=== PATIENT | male | born 1995 | race Caucasian/White ===

== ENCOUNTER 2019-10-20 18:22 | Emergency (ER) | payer OTHER, SELFPAY ==
[2019-10-20 18:23] VITALS: BP 119/85; PULSE 61; RESP 18; TEMP 36.3; O2SAT 99; BMI 25.8
--- NOTE | 2019-10-20 18:38 | ED_ITS ---
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 He did not his head and there is no loss of consciousness. Due to pain he was unable to get up for brief period of time but then was able to get up, with significant difficulty in walking slightly lightheaded but tolerated sitting in the car while his brought him into the emergency department. He complains of severe pain at the top of lumbar curve and severe pain with any movement of his left leg. He describes some minor tingling in all toes (bilateral) but no overt numbness. He is able to move both lower extremities and he is neurovascularly intact Related Data Previous Rx's Medication Instructions Recorded oxycodone-acetaminophen 1 tab PO Q6H PRN #20 tab 10/20/19 Allergies Allergy/AdvReac Type Severity Reaction Status Date / Time No Known Drug Allergies Allergy Verified 10/20/19 18:23 Review of Systems Review of Systems Narrative: Pertinent positive and negative findings as per HPI Remainder of review of systems is otherwise unremarkable for Constitutional: Fevers, chills, weakness ENT: No sore throat, neck pain, ear pain CV: Chest pain, palpitations, dyspnea on exertion Respiratory: Cough, wheeze, dyspnea GI: Nausea, vomiting, diarrhea, change in bowel habits, black or bloody stools : Dysuria, hematuria, flank pain MS: Muscle weakness, numbness, joint swelling or warmth Skin: Rashes, nonhealing lesions Neuro: Syncope, dizziness, tingling Patient History Social History Smoking Status: Current every day smoker Smoking Status: Current every day smoker tobacco type: cigarettes alcohol intake frequency: a few times a week Substance Use Type: does not use Exam Narrative Exam Narrative: General: Healthy appearing, in significant pain without respiratory distress. Able to give a complete and coherent history. Well- nourished well-developed HEENT: Moist mucous membranes, normal sclera with reactive pupils, no trauma to the head or face Neck: No tenderness to the occipital insertion, midline cervical spine, supple Respiratory: Lungs are clear to auscultation, no wheezing no rales no rhonchi. Full and symmetrical air movement Chest: No subcutaneous air, significant bruising or contusion, Cardiac: Regular rate and rhythm no murmurs no bruits Abdomen: Soft mild tenderness in the right lower quadrant, good bowel tones, mild right flank pain Skin: Warm and dry, no rashes, abrasions or other trauma Neurologic: Grossly neurologically intact with no obvious asymmetries or abnormalities. He describes tingling to the tips of all 10 toes but has full sensation and is able to move them with good capillary refill to all toes. Exquisite pain in his back with any manipulation of the left leg, unable to lift more than 5? without causing pain. Right leg does exacerbate the back pain slightly but he is able to flex and rotate that hip. He does not have any pain or tenderness with manipulation of the SI joint or pelvic ring. Spine: No tenderness to palpation in the thoracic or lumbar spine no abrasions or contusions to the back. Extremities: No trauma, well perfused Psych: Cooperative, appropriate insight and affect Initial Vital Signs Initial Vital Signs: Vital Signs Temperature 97.4 F L 10/20/19 18:23 Pulse Rate 61 10/20/19 18:23 Respiratory Rate 18 10/20/19 18:23 Blood Pressure 119/85 10/20/19 18:23 Pulse Oximetry 99 10/20/19 18:23 Course Orders Ordered: ED Orders 10/20/19 18:51 CT abdomen pelvis w con Stat 10/20/19 18:52 XR chest 1V Stat 10/20/19 19:03 Complete Blood Count AUTO DIFF Stat Comprehensive Metabolic Panel Stat Lipase Stat 10/20/19 20:25 CT chest w con Stat Hydromorphone HCl (Dilaudid) 0.5 mg IV Q30MIN PRN PRN Reason: pain Ondansetron HCl (Zofran) 4 mg IV PRN PRN PRN Reason: Nausea Last Admin: 10/20/19 19:36 Dose: 4 mg Documented by: CVANCE Discontinued Medications Hydromorphone HCl (Dilaudid) 1 mg IV NOW ONE Stop: 10/20/19 18:51 Last Admin: 10/20/19 19:35 Dose: 1 mg Documented by: CVANCE Sodium Chloride (Normal Saline 0.9%) 1,000 mls @ 1,000 mls/hr IV BOLUS ONE Stop: 10/20/19 19:49 Last Infusion: 10/20/19 20:35 Dose: 0 mls/hr Documented by: Admin: 10/20/19 19:35 Dose: 1,000 mls/hr Documented by: CHRIS Ketorolac Tromethamine (Toradol) 15 mg IV NOW ONE Stop: 10/20/19 21:12 Last Admin: 10/20/19 21:31 Dose: 15 mg Documented by: CHRIS Ondansetron HCl (Zofran) 4 mg IV NOW ONE Stop: 10/20/19 20:26 Last Admin: 10/20/19 20:45 Dose: Not Given Documented by: CHRIS Oxycodone/Acetaminophen (Percocet 5/325) 1 tab PO NOW ONE Stop: 10/20/19 21:12 Last Admin: 10/20/19 21:31 Dose: 1 tab Documented by: CHRIS Oxycodone/Acetaminophen (Endocet 5/325 Prepack) 1 bottle MISC SEEINSTR ONE Stop: 10/20/19 21:12 Last Admin: 10/20/19 22:53 Dose: Not Given Documented by: Oxycodone/Acetaminophen (Endocet 5/325 Prepack) 1 bottle MISC SEEINSTR ONE Stop: 10/20/19 22:04 Last Admin: 10/20/19 22:53 Dose: 1 bottle Documented by: Vital Signs Vital signs: Vital Signs - 8 hr 10/20/19 18:23 10/20/19 21:29 10/20/19 22:48 Temperature 97.4 F L Pulse Rate 61 105 H 80 Respiratory Rate 18 15 12 Blood Pressure 119/85 129/67 129/67 Pulse Oximetry 99 96 97 MDM - Fall Medical Records Attestation: I reviewed the patient's medical records. Lab Data Attestation: I reviewed the patient's lab results. Result diagrams: 10/20/19 19:03 10/20/19 19:03 Labs: Lab Results 10/20/19 10/20/19 Range/Units 19:03 19:03 WBC 13.3 H (4.5-11.0) X10^3/uL RBC 5.29 (4.5-5.9) X10^6/uL Hgb 14.5 (13.5-17.5) g/dL Hct 41.9 (41-53) % MCV 79.2 L (80-100) fL MCH 27.4 (26-34) PG MCHC 34.6 (30-36) % RDW 13.8 (11.6-14.8) % Plt Count 201 (150-400) X10^3/uL Neut % (Auto) 74.6 (50-75) % Lymph % (Auto) 18.7 L (25-40) % [place] % (Auto) 4.2 (3-14) % Eos % (Auto) 2.4 (2-4) % Baso % (Auto) 0.1 (0-2) % Neut # (Auto) 9900 H (7425-8176) /uL Lymph # (Auto) 2500 (1762-0561) /uL [place] # (Auto) 600 (0-900) /uL Eos # (Auto) 300 (0-450) /uL Baso # (Auto) 0 (0-100) /uL Sodium 136 L (137-145) mmol/L Potassium 4.5 (3.4-5.1) mmol/L Chloride 100 (98-107) mmol/L Carbon Dioxide 32 (22-32) mmol/L BUN 14 (9-20) mg/dL Creatinine 0.90 (0.66-1.25) mg/dL Estimated GFR > 60.0 (>60) mL/min BUN/Creatinine Ratio 15.6 (6-22) Glucose 108 H (70-100) mg/dL Calcium 9.7 (8.4-10.2) mg/dL Total Bilirubin 0.6 (0.2-1.3) mg/dL AST 57 (17-59) IU/L ALT 73 H (<50) IU/L Alkaline Phosphatase 87 (38-126) U/L Total Protein 7.8 (6.3-8.2) g/dL Albumin 4.6 (3.5-5.0) g/dL Globulin 3.2 (1.7-4.1) g/dL Albumin/Globulin Ratio 1.4 (1.0-2.8) Lipase 64 (23-300) U/L Urine Dip Bedside Urine Glucose Negative Bedside Urine Bilirubin - Negative Bedside Urine Ketone - Negative Urine Specific [place] 1.010 Bedside Urine Occult Blood - Negative Bedside Urine pH 6.0 Bedside Urine Protein - Negative Bedside Urine Urobilinogen 1+ 2mg Bedside Urine Nitrite - Negative Bedside Urine Leukocytes - Negative Esterase Imaging Data Chest x-ray: Radiologist's Impression: FINDINGS: Surgical changes and devices: None. Lungs and pleura: Low lung volumes and crowded interstitial and bronchovascular markings. No pleural effusions or pneumothorax. Mediastinum: Given low lung volumes and supine position, the mediastinum remains slightly widened. Heart size is normal. Bones and chest wall: No suspicious bony lesions. Overlying soft tissues appear unremarkable. IMPRESSION: 1. Despite supine position and low lung volumes, the mediastinum is slightly widened, particularly given history of back pain. Consider either upright PA chest x-ray or, if there is clinical concern of upper back pain, CT chest with contrast. Dictated by: Nat Michaud M.D. on 10/20/2019 at 19:47 CT scan - abdomen/pelvis: Radiologist's Impression: FINDINGS: Image quality: Excellent. ABDOMEN: Lung bases: Lung bases are clear. No pleural effusions. Heart size is normal. Solid organs: Liver is normal in size and enhancement. Gallbladder is normal . Biliary system is non dilated. Pancreas enhances normally. Spleen is normal in size and enhancement. No adrenal nodules. Kidneys demonstrate normal size and enhancement, without hydronephrosis. Peritoneum and bowel: Bowel loops demonstrate normal wall thickness and caliber. Possible surgical staple line along one of the small bowel loops in the lower mid abdomen. No free fluid or air. Nodes and vessels: No retroperitoneal or mesenteric adenopathy by size criteria. Aorta and inferior vena cava are normal in size. Miscellaneous: No ventral hernias. PELVIS: Genitourinary: Bladder wall thickness is normal. Miscellaneous: No inguinal hernias or adenopathy. Bones: There is anterior wedge compression fracture of L2 with mild displacement of the anterior superior corner. There is about 30% height loss. No fracture of the posterior column or retropulsion of fracture fragments. There is also very subtle fracture of the anterior superior endplate of T12 with slight depression of the mid superior endplate.. IMPRESSION: 1. 30% acute L2 anterior wedge compression fracture without disruption of the posterior column. 2. Subtle mild anterior superior endplate fracture of T12. 3. No evidence of solid organ or hollow viscus injury. Dictated by: Nat Michaud M.D. on 10/20/2019 at 20:15 CT scan - chest: Radiologist's Impression: FINDINGS: Image quality: Adequate. There is mild motion artifact.. Lungs and pleura: No acute air space opacities. Mild gravitational changes at the posterior lungs bilaterally but no evidence for contusion or hemothorax. No pleural effusions or pneumothorax. Central and peripheral airways are patent and normal in caliber. Mediastinum: Heart size is normal. No pericardial effusion. Normal caliber aorta without evidence of dissection or hematoma. Normal vessel branching pattern. There is amorphous nodular soft tissue in the anterior mediastinum consistent with residual thymic tissue. No significant hyperdensities to suggest hematoma. The pulmonary arteries are normal in size. No mediastinal or hilar adenopathy by size criteria. Esophagus is normal in caliber. No hiatal hernia. Bones and chest wall: No suspicious bony lesions. No vertebral body compression fractures. Nondisplaced T12 compression fracture is less convincing on this study. No axillary or supraclavicular adenopathy by size criteria. Thyroid gland is normal . Abdomen: Visualized upper abdominal solid organs appear normal. Upper abd ominal bowel loops are normal in caliber. IMPRESSION: 1. No evidence of acute aortic injury. 2. 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 3. No evidence of acute trauma to the lungs or upper thoracic spine. 4. T12 nondisplaced fracture previously mentioned is less convincing on the vladislav dy, though MRI would be confirmatory. Dictated by: Nat Michaud M.D. on 10/20/2019 at 21:55 MDM Narrative Medical decision making narrative: 24-year-old gentleman with a fall after chasing his CT and stumbling over a fence. Sustained 30% compression fracture L2 and a small T12 endplate fracture. Of note, has a 3/6 diastolic murmur with a click that he states he has had for a long time that has never been further evaluated. I have encouraged [place] pain is better controlled after the lot of, Toradol and oral Percocet. Able to stand initial pt pain is less troublesome when he is standing than when he is laying down. He is able to walk with minimal difficulty. Discussed compression fractures. Also recommended that he follow-up with Dr. Resendiz to see if might be a candidate for any type of kyphoplasty. At this point he has no acute neurologic injury and is safe for home discharge Discharge Plan Departure Patient Disposition: Home Clinical Impression: Compression fracture, Heart murmur Fall Qualifiers: Encounter type: initial encounter Qualified Code(s): W19.XXXA - Unspecified fa ll, initial encounter Instructions: DI for Vertebral Fracture Activity Restrictions/Additional Instructions: Thank you for coming in today With your fall, you do have a 30% compression fracture at the L2 level as well as a small endplate compression fracture at T12. These are stable fractures and there is no spinal cord involvement. These are going to be painful and will take up to 6 weeks to completely heal. Using 400 mg of ibuprofen (2 [id number] pills) and 1 Tylenol every 6 hours can be very helpful in controlling pain. For severe pain using 400 mg of ibuprofen and 1-2 Percocet will be helpful. Please follow-up with our orthopedic surgeon, Dr. Resendiz to make sure that there is no additional treatment that may be helpful or required. Incidentally, I did note diastolic heart murmur with an opening click on your exam today. Please discuss this with your primary care physician. It may be appropriate to have a follow-up echocardiogram to make sure there is no additional workup required. Prescriptions: New oxycodone-acetaminophen 5-325 mg tablet 1 tab PO Q6H PRN (Reason: pain) Qty: 20 RF: 0 Referrals: [place] Resendiz MD [Physician] - Stand Alone Forms: Work Release Note
--- NOTE | 2019-10-20 18:51 | DI.CT.S_ITS ---
PROCEDURE: CT ABDOMEN PELVIS W CON INDICATIONS: trauma, abd pain and lumbar pain TECHNIQUE: After the administration of intravenous contrast, 5 mm thick sections acquired from the diaphragm to the symphysis. 5 mm coronal and sagittal reformats were acquired. For radiation dose reduction, the following was used: automated exposure control, adjustment of mA and/or kV according to patient size. COMPARISON: None. FINDINGS: Image quality: Excellent. ABDOMEN: Lung bases: Lung bases are clear. No pleural effusions. Heart size is normal. Solid organs: Liver is normal in size and enhancement. Gallbladder is normal . Biliary system is non dilated. Pancreas enhances normally. Spleen is normal in size and enhancement. No adrenal nodules. Kidneys demonstrate normal size and enhancement, without hydronephrosis. Peritoneum and bowel: Bowel loops demonstrate normal wall thickness and caliber. Possible surgical staple line along one of the small bowel loops in the lower mid abdomen. No free fluid or air. Nodes and vessels: No retroperitoneal or mesenteric adenopathy by size criteria. Aorta and inferior vena cava are normal in size. Miscellaneous: No ventral hernias. PELVIS: Genitourinary: Bladder wall thickness is normal. Miscellaneous: No inguinal hernias or adenopathy. Bones: There is anterior wedge compression fracture of L2 with mild displacement of the anterior superior corner. There is about 30% height loss. No fracture of the posterior column or retropulsion of fracture fragments. There is also very subtle fracture of the anterior superior endplate of T12 with slight depression of the mid superior endplate.. IMPRESSION: 1. 30% acute L2 anterior wedge compression fracture without disruption of the posterior column. 2. Subtle mild anterior superior endplate fracture of T12. 3. No evidence of solid organ or hollow viscus injury. Dictated by: Nat Michaud M.D. on 10/20/2019 at 20:15 Approved by: Nat Michaud M.D. on 10/20/2019 at 20:26
--- NOTE | 2019-10-20 18:52 | DI.RAD.S_ITS ---
PROCEDURE: XR CHEST 1V INDICATIONS: trauma TECHNIQUE: One view of the chest was acquired. COMPARISON: None. FINDINGS: Surgical changes and devices: None. Lungs and pleura: Low lung volumes and crowded interstitial and bronchovascular markings. No pleural effusions or pneumothorax. Mediastinum: Given low lung volumes and supine position, the mediastinum remains slightly widened. Heart size is normal. Bones and chest wall: No suspicious bony lesions. Overlying soft tissues appear unremarkable. IMPRESSION: 1. Despite supine position and low lung volumes, the mediastinum is slightly widened, particularly given history of back pain. Consider either upright PA chest x-ray or, if there is clinical concern of upper back pain, CT chest with contrast. Dictated by: Nat Michaud M.D. on 10/20/2019 at 19:47 Approved by: Nat Michaud M.D. on 10/20/2019 at 19:51
[2019-10-20 19:11] LABS: Add Manual Diff / Slide Review NO; Basophils Absolute Auto 0 /uL (0-100); Basophils Percent Auto 0.1 % (0-2); Eosinophils Absolute Auto 300 /uL (0-450); Eosinophils Percent Auto 2.4 % (2-4); Hematocrit 41.9 % (41-53); Hemoglobin 14.5 g/dL (13.5-17.5); Lymphocytes Absolute Auto 2500 /uL (1100-4500); Lymphocytes Percent Auto 18.7 % (25-40); Mean Corpuscular HGB Conc 34.6 % (30-36); Mean Corpuscular Hemoglobin 27.4 PG (26-34); Mean Corpuscular Volume 79.2 fL (80-100); Monocytes Absolute Auto 600 /uL (0-900); Monocytes Percent Auto 4.2 % (3-14); Neutrophils Absolute Auto 9900 /uL (1500-7000); Neutrophils Percent Auto 74.6 % (50-75); Platelet Count 201 X10^3/uL (150-400); Red Blood Cell Count 5.29 X10^6/uL (4.5-5.9); Red Cell Distribution Width 13.8 % (11.6-14.8); White Blood Cell Count 13.3 X10^3/uL (4.5-11.0)
[2019-10-20 19:21] LABS: Alanine Aminotransferase 73 IU/L (<50); Albumin 4.6 g/dL (3.5-5.0); Albumin Globulin Ratio 1.4 (1.0-2.8); Alkaline Phosphatase 87 U/L (38-126); Aspartate Aminotransferase 57 IU/L (17-59); BUN Creatinine Ratio 15.6 (6-22); Bilirubin Total 0.6 mg/dL (0.2-1.3); Blood Urea Nitrogen 14 mg/dL (9-20); Calcium 9.7 mg/dL (8.4-10.2); Carbon Dioxide 32 mmol/L (22-32); Chloride 100 mmol/L (98-107); Estimated Glomerular Filt Rate > 60.0 mL/min (>60); Globulin 3.2 g/dL (1.7-4.1); Glucose 108 mg/dL (70-100); HEMOLYSIS < 15 (0-50); Lipase 64 U/L (23-300); Potassium 4.5 mmol/L (3.4-5.1); Sodium 136 mmol/L (137-145); Total Protein 7.8 g/dL (6.3-8.2)
[2019-10-20] MEDS: HYDROMORPHONE 1 MG INJ IV (19:35)
[2019-10-20] MEDS: SODIUM CHLORIDE 0.9% 1,000 ML 1000 ML IV (19:35)
[2019-10-20] MEDS: ONDANSETRON 4 MG/2 ML INJ IV (19:36)
--- NOTE | 2019-10-20 20:25 | DI.CT.S_ITS ---
PROCEDURE: CT CHEST W CON INDICATIONS: trauma, widened mediastinum TECHNIQUE: After the administration of intravenous contrast, 5 mm thick sections acquired from the pulmonary apices to the posterior costophrenic angles. 1 mm axial lung, 5 mm thick coronal and sagittal reformats and 7 mm axial MIP were acquired. For radiation dose reduction, the following was used: automated exposure control, adjustment of mA and/or kV according to patient size. COMPARISON: None. FINDINGS: Image quality: Adequate. There is mild motion artifact.. Lungs and pleura: No acute air space opacities. Mild gravitational changes at the posterior lungs bilaterally but no evidence for contusion or hemothorax. No pleural effusions or pneumothorax. Central and peripheral airways are patent and normal in caliber. Mediastinum: Heart size is normal. No pericardial effusion. Normal caliber aorta without evidence of dissection or hematoma. Normal vessel branching pattern. There is amorphous nodular soft tissue in the anterior mediastinum consistent with residual thymic tissue. No significant hyperdensities to suggest hematoma. The pulmonary arteries are normal in size. No mediastinal or hilar adenopathy by size criteria. Esophagus is normal in caliber. No hiatal hernia. Bones and chest wall: No suspicious bony lesions. No vertebral body compression fractures. Nondisplaced T12 compression fracture is less convincing on this study. No axillary or supraclavicular adenopathy by size criteria. Thyroid gland is normal . Abdomen: Visualized upper abdominal solid organs appear normal. Upper abdominal bowel loops are normal in caliber. IMPRESSION: 1. No evidence of acute aortic injury. 2. 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 3. No evidence of acute trauma to the lungs or upper thoracic spine. 4. T12 nondisplaced fracture previously mentioned is less convincing on the study, though MRI would be confirmatory. Dictated by: Nat Michaud M.D. on 10/20/2019 at 21:55 Approved by: Nat Michaud M.D. on 10/20/2019 at 22:04
[2019-10-20 21:29] VITALS: BP 129/67; PULSE 105; RESP 15; O2SAT 96
[2019-10-20] MEDS: OXYCODONE/ACETAMINOPHEN 5/325 TABLET 1 TAB PO (21:31)
[2019-10-20] MEDS: KETOROLAC 60 MG/2 ML VIAL 15 MG IV (21:31)
[2019-10-20 22:48] VITALS: BP 129/67; PULSE 80; RESP 12; O2SAT 97
[2019-10-20] MEDS: OXYCODONE/APAP 5/325 PREPACK 1 BOTTLE MISC (22:53)
[2019-10-20 23:15] VITALS: BP 129/67; PULSE 80; O2SAT 97
== END 2019-10-20 23:17 | disposition home or self-care (01) ==
PROVIDERS: Emergency Provider Emergency Medicine
DX: S32.020A Wedge compression fracture of second lumbar vertebra, initial encounter for closed fracture (principal); S22.089A Unspecified fracture of T11-T12 vertebra, initial encounter for closed fracture; R01.1 Cardiac murmur, unspecified; W19.XXXA Unspecified fall, initial encounter
CPT/HCPCS: 36415; 71045; 71260; 74177; 80053; 81003; 83690; 85025; 96361; 96374; 96375; 99284; J1170; J1885; J2405; Q9967

== ENCOUNTER 2020-09-28 19:45 | Emergency (ER) | payer OTHER, SELFPAY ==
[2020-09-28 20:12] VITALS: BP 142/95; PULSE 71; RESP 18; TEMP 36.3; O2SAT 99; BMI 27.3
--- NOTE | 2020-09-28 21:39 | ED_ITS ---
HPI - Back Pain/Injury General Chief Complaint: Back Pain/Injury Stated Complaint: Upper Back, Neck Pain, Burning, Tingling in Rt Arm Time Seen by Provider: 09/28/20 21:33 Source: patient Limitations: no limitations History of Present Illness HPI Narrative: Patient is a 24-year-old male who presents with upper neck and thoracic pain. 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 Did not fall there was no injury. It is slowly let up over the last 5 hours. He said he initially felt a pop he felt another 1 and seems to be getting better but still has some tingly sensation down his spine. He previously had a fracture in his spine after turning and twisting and falling in his yd a few years ago. Again he denies any injury today. He has not taken anything for pain Related Data Previous Rx's Medication Instructions Recorded oxycodone-acetaminophen 5 mg-325 1 tab PO Q6H PRN #20 tab 10/20/19 mg tablet cyclobenzaprine 5 mg tablet 5 mg PO TID PRN #10 tab 09/28/20 Allergies Allergy/AdvReac Type Severity Reaction Status Date / Time No Known Drug Allergies Allergy Verified 09/28/20 20:12 Review of Systems Review of Systems Narrative: GENERAL: Denies chills,fever HEENT: Denies throat pain RESPIRATORY: Denies dyspnea, cough, wheezing CARDIOVASCULAR: Denies chest pain, palpitations GASTROINTESTINAL: Denies nausea, vomiting MUSCULOSKELETAL: See HPI SKIN: No rash, no laceration, no pruritus NEUROLOGIC: Denies weakness, dizziness, headache, numbness 8 point review of systems is negative except for those stated above and HPI Patient History Social History Smoking Status: Former smoker Smoking Status: Former smoker tobacco type: cigarettes alcohol intake frequency: holidays/special occasions only Substance Use Type: does not use Exam Initial Vital Signs Initial Vital Signs: Vital Signs Temperature 97.4 F L 09/28/20 20:12 Pulse Rate 71 09/28/20 20:12 Respiratory Rate 18 09/28/20 20:12 Blood Pressure 142/95 H 09/28/20 20:12 Pulse Oximetry 99 09/28/20 20:12 GENERAL: Well-appearing, well-nourished and in no acute distress. CARDIOVASCULAR: peripheral pulses in tact, cap refill <2 sec RESPIRATORY: No respiratory distress, speaks in full sentences without difficulty BACK: No vertebral tenderness. There is muscle spasm felt in the C7- T1 area of. Feeling better with massage. EXTREMITIES: Normal range of motion, no clubbing or edema. Neurovascularly intact NEUROLOGICAL: Cranial nerves II through XII grossly intact. Normal gait and speech. SKIN: Warm, dry, no petechiae, no rashes or lesions. Course Orders Ordered: Discontinued Medications Cyclobenzaprine HCl (Cyclobenzaprine 10 Mg Prepack) 1 bottle MISC SEEINSTR ONE Stop: 09/28/20 21:44 Last Admin: 09/28/20 22:04 Dose: 1 bottle Documented by: WATSON Ibuprofen (Ibuprofen 400 Mg Tablet) 800 mg PO NOW ONE Stop: 09/28/20 21:44 Last Admin: 09/28/20 22:04 Dose: 800 mg Documented by: WATSON Vital Signs Vital signs: Vital Signs - 8 hr 09/28/20 20:12 09/28/20 22:10 Temperature 97.4 F L Pulse Rate 71 56 L Respiratory Rate 18 16 Blood Pressure 142/95 H 126/82 Pulse Oximetry 99 98 MDM - Back Pain/Injury MDM Narrative Medical decision making narrative: Patient has had no trauma fall or injury today. Started after being in a weird position most consistent with a muscle spasm. Pain has improved over last few hours however not totally gone. He is given Motrin and Flexeril in the ED. Discharge Plan Departure Patient Disposition: Home Clinical Impression: Spasm of thoracic back muscle Instructions: DI for Back Spasm Activity Restrictions/Additional Instructions: *You have been diagnosed with back spasm *What to do: At this time increase activity as tolerated. Recommend light a ctivity. Heating pad, light massage. Remaining still will make spasm and pain worse *Continue to take medications as directed Motrin 600 mg every 6 hours if needed for [id number] Cyclobenzaprine 5 mg every 8 hours only if needed for muscle spasm. This can cause drowsiness. *Follow up with your primary care provider in 2-3 days *Return to ER if you should have increasing pain, weakness, numbness, tingling or any new, worsening or concerning symptoms Prescriptions: New cyclobenzaprine 5 mg tablet 5 mg PO TID PRN (Reason: muscle spasm) Qty: 10 RF: 0 No Action oxycodone-acetaminophen 5-325 mg tablet 1 tab PO Q6H PRN (Reason: pain) Qty: 20 RF: 0
[2020-09-28] MEDS: IBUPROFEN 400 MG TABLET 800 MG PO (22:04)
[2020-09-28] MEDS: CYCLOBENZAPRINE 10 MG PREPACK 1 BOTTLE MISC (22:04)
[2020-09-28 22:10] VITALS: BP 126/82; PULSE 56; RESP 16; O2SAT 98
== END 2020-09-28 22:12 | disposition home or self-care (01) ==
PROVIDERS: Emergency Provider Emergency Medicine
DX: M62.830 Muscle spasm of back (principal)
CPT/HCPCS: 99283